=== PATIENT | female | born 1940 | race Caucasian/White ===

== ENCOUNTER 2016-07-21 09:49 | Inpatient (IN) | payer MEDICARE, BC ==
[~2016-07-21] VITALS: Ht 160 cm; Wt 68.0 kg
[~2016-07-21 09:49] MED LIST: ADLT ASA LOW81 MG PO; ALEVE220 M1 PO; AMBIEN10 MG PO; AMLODIPINE5 MG PO; ASACOL400 MG PO; ASPIR-8181 MG OR; C 250 PO; CALTRATE 600 PO; CALTRATE 602 PO; CENTRUM PO; CENTRUM SILVER PO; CINNAMON500 MG PO; CLONAZEPAM1 MG PO; CO Q-10400 MG PO; COREG CR80 MG PO; DIGITEK0.25 MG OR; DYAZIDE1 CAP PO; ELAVIL25 MG PO; GABAPENTIN100 MG PO; GABAPENTIN400 M2 PO; LATANOPROST0.005 % OU; LIDODERM5 % EX; LOMOTIL2.5 MG PO; LOSARTAN POT100 MG PO; LUTEIN20 MG PO; LYRICA300 MG OR; MAXZIDE-2537.5 MG/TA PO; METAXALONE PO; METAXALONE800 M1 PO; MICARDIS40 MG PO; NABUMETONE500 MG OR; NORCO1 TA1 PO; OMACOR1 GM OR; POTASSIUM GLUC595 MG PO; PRILOSEC40 MG PO; SIMVASTATIN40 MG PO; SKELAXIN800 MG PO; SYSTANE BAL OP; TALWIN NX OR; TRICOR145 MG OR; ULTRAM50 MG PO; VITAMIN B-12500 MC1 SL; VITAMIN D32000 UNIT PO; ZETIA10 MG PO; ZOCOR20 M1 PO; ZOCOR20 MG OR; [UNRECOGNIZED DRUG - OTHER] PO
[2016-07-21] MEDS ORDERED: GABAPENTIN300 M2 PO (14:01)
[2016-07-21] MEDS ORDERED: COZAAR100 MG PO (14:12)
[2016-07-21] MEDS ORDERED: COREG25 MG PO (14:13)
[2016-07-21] MEDS ORDERED: VITAMIN D31000 UNI1 PO (14:14)
[2016-07-21] MEDS ORDERED: CALTRATE 600+D1 CHW PO (14:15)
[2016-07-21] MEDS ORDERED: [UNRECOGNIZED DRUG - OTHER] PO (14:23)
[2016-07-21] MEDS ORDERED: MACU HEALTH PO (14:24)
[2016-07-24] VITALS (7 sets, daily range): BP systolic 112–156; BP diastolic 58–87
--- NOTE | 2016-07-24 15:15 | NUR ---
PT ARRIVED TO FLOOR AT THIS TIME VIA BED ACCOMPANIED BY TERRY RN; PT ORIENTED TO ROOM AND CALL LIGHT SYSTEM; PT C/O PAIN IN RIGHT KNEE RATING 8 OUT OF 10; PT MEDICATED WITH PERCOCET 1 TAB PER PRN ORDERS; ASSESSMENT COMPLETED AT THIS TIME; #[address] WITH LR @100ML/HR INFUSING; DRESSING TO RIGHT HIP CDI; WEDGE IN PLACE; SCD'S APPLIED; AND ICE PACK TO RIGHT HIP PER MD ORDERS; PT EDUCATED ON PAIN SCALE, PAIN MEDICATIONS, AND POC; PT DENIES ANY NEEDS AT THIS TIME; CALL LIGHT WITHIN REACH; WILL CONTINUE TO MONITOR
--- NOTE | 2016-07-24 19:30 | NUR ---
PT AWAKE RESTING IN BED. VSS. PT IS ALERT AND ORIENTED X3. RESP EVEN AND UNLABORED. O2 SAT 97% ON R/A. LUNGS CLEAR BILAT. ABD SOFT AND NONDISTENDED WITH BOWEL SOUNDS PRESENT. NO LOWER EXT EDEMA NOTED. LEFT HIP DRESSING IS CLEAN, DRY AND INTACT WITH NO DRAINAGE NOTED. STRONG PEDAL AND POPLITEAL PULSES PALPATED BILAT. IV SITE PATENT RT HAND NO REDNESS OR SWELLING AT SITE. IVF LR AT 100CC/HR. PT INSTRUCTED ON INSENTIVE SPIRMETRY AT BEDSIDE TO USE 10X/HR WHILE AWAKE. OFFER NO COMPLAINTS AT THIS TIME. FREQUENT ROUNDS MADE. CALL CHRISTINE WITHIN REACH.
--- NOTE | 2016-07-24 21:01 | NUR ---
PT MEDICATED WITH DILAUDID 1MG IV FOR LEFT HIP DISCOMFORT. IV SITE PATENT. CALL CHRISTINE WITHIN REACH.
--- NOTE | 2016-07-24 23:36 | NUR ---
PT ASSISTED BACK TO BED AFTER USING BSC. VOIDING CLEAR YELLOW URINE WITHOUT ANY DIFFICULTY. VSS. RESP EVEN AND UNLABORED. GAIT IS STEADY. MEDICATED WITH DILAUDID 1MG IV FOR LEFT HIP DISCOMFORT. IV SITE PATENT. FREQUENT ROUNDS MADE. CALL CHRISTINE WITHIN REACH.
--- NOTE | 2016-07-25 01:00 | NUR ---
PT AWAKE RESTING IN BED. RESP EVEN AND UNLABORED. NO DISTRESS NOTED. PT OFFERS NO COMPLAINTS AT THIS TIME. LEFT HIP DSG CLEAN AND DRY. IV SITE PATENT. WILL CONTINUE TO CLOSELY MONITOR. FREQUENT ROUNDS MADE. CALL CHRISTINE WITHIN REACH.
--- NOTE | 2016-07-25 04:00 | NUR ---
PT RESTING IN BED. RESP EVEN AND UNLABORED. IV SITE PATENT NO REDNESS OR SWELLING AT SITE. IVF LR DECREASED TO KVO DUE TO TAKING IN FLUIDS WITHOUT ANY DIFFICULTY AND FREQUENTLY VOIDING. LEFT HIP DSG REMAINS CLEAN AND DRY. STRONG PEDAL PULSES PALPATED BILAT. PT OFFERS NO COMPLAINTS AT THIS TIME. FREQUENT ROUNDS MADE. CALL CHRISTINE WITHIN REACH.
[2016-07-25 05:22] VITALS: BP 104/63
[2016-07-25 05:55] LABS: HEMATOCRIT 29.7 % (37.0-47.0); HEMOGLOBIN 9.9 g/dl (12.0-16.0); IMMATURE GRANULOCYTES 0.6 % (0.0-1.0); MEAN CELL VOLUME 98.3 fL CALC (80.0-100.0); MEAN CORPUSCULAR HGB 32.8 pG CALC (26.0-32.0); MEAN CORPUSCULAR HGB CONC 33.3 g/L CALC (32.0-36.0); NEUT# 5.11 thou/uL (2.00-7.15); RED BLOOD COUNT 3.02 mill/uL (4.20-5.60); RED CELL DISTRI WIDTH 12.8 % (11.5-15.5)
[2016-07-25 06:11] LABS: ANION GAP 11 (6-22 (CALC)); BUN 17 mg/dL (8-23); BUN/CREATININE RATIO 26 (12-20 (CALC)); CALCIUM 8.9 mg/dL (8.4-10.2); CARBON DIOXIDE 28 mmol/l (22-30); CHLORIDE 100 mmol/l (95-108); CREATININE 0.7 mg/dL (0.5-1.0); GFR > 60 ML/MIN (>=60 (CALC)); GFR FOR AFR.AMER. > 60 ML/MIN (>=60 (CALC)); GLUCOSE 110 mg/dL (82-115); POTASSIUM 3.3 mmol/l (3.5-5.1); SODIUM 135 mmol/l (137-146)
[2016-07-25 08:25] VITALS: BP 117/71
--- NOTE | 2016-07-25 09:30 | NUR ---
RECEIVED PT LAYING IN BED, ASSITED WITH REPOSITIONING AND PT DENIES PAIN AT THIS TIME. WILL CONTINUE TO MONITOR. CALL CHRISTINE WITHIN REACH.
--- NOTE | 2016-07-25 13:02 | NUR ---
AM: PATIENT SEEN BEDSIDE FOR GAIT AND F.A. REVIEWED TOTAL HIP PRECAUTIONS WITH THE PATIENT. SHE HAD MINIMAL RECALL FROM YESTERDAY. WILL REVIEW AGAIN. TRANSFER TRAINING DONE SUPINE TO SIT. PATIENT WANTED TO CROSS LEGS AND HELP THE RIGHT WITH THE LEFT-HIP PRECAUTIONS AGAIN REVIEWED. NEEDS CUING AND MIN ASSIST WITH SIT TO AND FROM STAND. AMBULATED 12 FEET WITH ROLLING WALKER. STATES SHE LIVES ALONE BUT WILL HAVE HER DAUGHTER AND GRANDDAUGHTER WITH HER FOR A WHILE. DOES NOT WANT TO GO TO REHAB. ONLY ONE STEP AT HOME. HAS HER OWN WALKER AT HOME. HAS A POOR GAIT PATTERN AND NEEDS CONTINUAL CUING TO CORRECT PATTERN ESPECIALLY THE INTERNAL ROTATION OF THE RIGHT HIP ON HEEL STRIKE. ENDURANCE LIMITED BY THE PAIN IN THE HIP. SHE APPEARED TO TOLERATE THE TREATMENT WELL AND WAS LEFT COMFORTABLE IN THE CHAIR WITH A PILLOW BETWEEN HER KNEES AND THE CALL LIGHT IN HER LAP. SHE IS CAUTIONED RE GETTING UP ALONE.
--- NOTE | 2016-07-25 13:47 | NUR ---
PT WAS OOB FOR A WALK WITH PHYSICAL THERAPY AND THEN TO THE RECLINER. WILL CONTINUE TO MONITOR. CALL CHRISTINE WITHIN REACH.
--- NOTE | 2016-07-25 15:59 | NUR ---
PM; PATIENT SEEN FOR EX AND FA. SHE IS ALERT AND COOP AND C/O OF BEING TIRED AND UNABLE TO WALK. WILLING TO DO EX AND TRANSFERS THOUGH. INSTRUCTED PATIENT IN TOTAL HIP PRECAUTIONS AND SHE DID WELL EXPLAINING THEM TO THE THERAPIST WITH 90% UNDERSTANDING. SHE DEMONSTRATED PROPER SIT TO AND FROM STAND AND SIT TO AND FROM SUPINE TRANSFERS WITH MINIMAL VERBAL CUING. SHE WAS ABLE TO TRANSFER SIT TO SUPINE WITH VERBAL CUING ONLY. GENTLE ACTIVE AND AA EX DONE IN SITTING AND IN SUPINE. PATIENT LEFT COMFORTABLE IN THE BED WITH THE CALL LIGHT IN REACH. SHE APPEARED TO TOLERATE TREATMENT WELL.
[2016-07-25 16:00] VITALS: BP 90/52
--- NOTE | 2016-07-25 16:45 | NUR ---
RECEIVED SHIFT REPORT FROM JUVENCIO BURT. PATIENT IS IN STABLE CONDITION AND APPEARS NOT TO BE IN ANY DISCOMFORT. REINFORCED THE IMPORTANCE OF NOT CROSSING HER LEGS. PT VERBALIZES UNDERSTANDING.
[2016-07-25 21:04] VITALS: BP 136/67
[2016-07-26 00:30] VITALS: BP 85/54
--- NOTE | 2016-07-26 00:30 | NUR ---
PATIENT BP AT THIS TIME IS 85/64, HR 64. PATIENT IS ASYMPTOMATIC AND APPEARS TO BE IN NO APPARENT ACUTE DISTRESS. WILL CONTINUE TO MONITOR
[2016-07-26 04:00] VITALS: BP 101/58
--- NOTE | 2016-07-26 04:00 | NUR ---
PATIENT RESTING QUIETLY. NO ACUTE DISTRESS NOTED
[2016-07-26 05:38] LABS: HEMATOCRIT 27.9 % (37.0-47.0); HEMOGLOBIN 9.4 g/dl (12.0-16.0); IMMATURE GRANULOCYTES 0.3 % (0.0-1.0); MEAN CELL VOLUME 98.2 fL CALC (80.0-100.0); MEAN CORPUSCULAR HGB 33.1 pG CALC (26.0-32.0); MEAN CORPUSCULAR HGB CONC 33.7 g/L CALC (32.0-36.0); NEUT# 4.32 thou/uL (2.00-7.15); RED BLOOD COUNT 2.84 mill/uL (4.20-5.60); RED CELL DISTRI WIDTH 12.8 % (11.5-15.5)
[2016-07-26 05:53] LABS: ANION GAP 12 (6-22 (CALC)); BUN 15 mg/dL (8-23); BUN/CREATININE RATIO 19 (12-20 (CALC)); CARBON DIOXIDE 29 mmol/l (22-30); CHLORIDE 98 mmol/l (95-108); CREATININE 0.8 mg/dL (0.5-1.0); GFR > 60 ML/MIN (>=60 (CALC)); GFR FOR AFR.AMER. > 60 ML/MIN (>=60 (CALC)); GLUCOSE 110 mg/dL (82-115); POTASSIUM 3.3 mmol/l (3.5-5.1); SODIUM 135 mmol/l (137-146)
--- NOTE | 2016-07-26 07:11 | NUR ---
BEDSIDE REPORT RECEIVED FROM JUVENCIO ZIMMER. PT SITTING UPRIGHT IN BED. DENIES PAIN. REPORTING OF CONCERNS ENCOURAGED. PLAN OF CARE DISCUSSED. FALL PRECAUTIONS REINFORCED. CALL LIGHT REVIEWED AND IN REACH. PT STATES UNDERSTANDING.
[2016-07-26 08:23] VITALS: BP 96/58
--- NOTE | 2016-07-26 10:46 | NUR ---
DR. COULTER IN TO SEE PT. PT UP IN CHAIR AT BEDSIDE. DENIES PAIN.
--- NOTE | 2016-07-26 13:21 | NUR ---
AM: THERAPY DONE FOR EX AND GAIT TRAINING. PATIENT NOW TRANSFERS WITH MIN ASSIST OF ONE. AMBULATED 30 FEET BEFORE C/O OF BEING TIRED. NEEDS VERBAL CUING FOR PATTERNING. REVIEWED TOTAL HIP PRECAUTIONS. SHE STILL IS CORRECT FOR 90%. ACTIVE EX DONE FOR RIGHT LE STRENGTHENING AND ROM KEEPING HIP PRECAUTIONS INTACT. SHE WAS LEFT COMFORTABLE IN THE CHAIR WITH HER CALL LIGHT AND VISITORS IN THE ROOM.
--- NOTE | 2016-07-26 14:41 | NUR ---
RIGHT HIP DRESSING CHANGED BY STUDENT NURSE JAVED WITH SUPERVISION OF CLINICAL REVIEW SPECIALIST. INCISION CLOSED WITH SURGICAL GLUE, NO DRAINAGE, NO S/S INFECTION. PUNCTURE WOUND CLOSED WITH SUTURES, NO DRAINAGE OR S/S INFEECTION. GAUZE AND MEDIPORE TAPE. TIME, DATED AND INITIALED.
--- NOTE | 2016-07-26 15:46 | NUR ---
PT RESTING WITH EYES CLOSED; NO S/SX OF DISTRESS NOTED; CALL CHRISTINE WITHIN REACH; WILL CONTINUE TO MONITOR
--- NOTE | 2016-07-26 16:18 | NUR ---
PHYSICAL THERAPY IN WITH PT; PT AMBULATORY WITH USE OF WALKER AND STAND BY ASSIST; WILL CONTINUE TO MONITOR.
--- NOTE | 2016-07-26 16:46 | NUR ---
PM: REVIEWED HIP PRECAUTIONS WITH THE PATIENT. ALSO REVIEWED WITH HER HOW TO NEGOTIATE THE ONE STEP IN AND OUT OF HER HOME. ASKED HER TO HAVE HER DAUGHTER WITH HER IN THE MORNING SO WE CAN REVIEW THE SAME WITH HER. GAIT TRAIINING DONE WITH A ROLLLING WALKER. ENDURANCE IMPROVED TO 75 FEET. TRANSFER TRAINING DONE IN AND OUT OF BED. SHE REQUIRES MOD ASSIST AND CUING TO MAINTAIN HIP PRECAUTIONS. SHE APPEARED TO TOLERATE TREATMENT WELL AND WAS LEFT COMFORTABLE IN THE BED WITH THE ABD WEDGE IN PLACE. SHE WAS SEEN FOR GT AND FA.
[2016-07-26 16:49] VITALS: BP 126/72
[2016-07-26 18:50] VITALS: BP 136/72
--- NOTE | 2016-07-26 18:50 | NUR ---
RECEIVED SHIFT REPORT FROM JUVENCIO STRANGE. PATIENT IS IN STABLE CONDITION AND APPEARS NOT TO BE IN ANY ACUTE DISTRESS OR DISCOMFORT. WILL CONTINUE TO MONITOR.
--- NOTE | 2016-07-27 | NUR ---
PATIENT LAYING IN BED WITH EYES CLOSED AND APPEARS TO BE SLEEPING. NO ACUTE CHANGES NOTED IN PT'S CONDITION. WILL CONTINUE TO MONITOR.
[2016-07-27 04:04] VITALS: BP 110/62
[2016-07-27 06:11] LABS: HEMATOCRIT 27.6 % (37.0-47.0); HEMOGLOBIN 9.2 g/dl (12.0-16.0); IMMATURE GRANULOCYTES 0.3 % (0.0-1.0); MEAN CELL VOLUME 98.2 fL CALC (80.0-100.0); MEAN CORPUSCULAR HGB 32.7 pG CALC (26.0-32.0); MEAN CORPUSCULAR HGB CONC 33.3 g/L CALC (32.0-36.0); NEUT# 4.39 thou/uL (2.00-7.15); RED BLOOD COUNT 2.81 mill/uL (4.20-5.60); RED CELL DISTRI WIDTH 12.8 % (11.5-15.5)
[2016-07-27 06:33] LABS: ANION GAP 10 (6-22 (CALC)); BUN 18 mg/dL (8-23); BUN/CREATININE RATIO 26 (12-20 (CALC)); CARBON DIOXIDE 33 mmol/l (22-30); CHLORIDE 98 mmol/l (95-108); CREATININE 0.7 mg/dL (0.5-1.0); GFR > 60 ML/MIN (>=60 (CALC)); GFR FOR AFR.AMER. > 60 ML/MIN (>=60 (CALC)); GLUCOSE 105 mg/dL (82-115); SODIUM 136 mmol/l (137-146)
[2016-07-27 08:10] VITALS: BP 110/54
--- NOTE | 2016-07-27 08:10 | NUR ---
ASSESSMENT IS COMPLETED: IV SITE IS FREE FROM REDNESS OR EDEMA. DRESSING IS CDI. CONTINUE TO OBSERVE AND MONITOR.
[2016-07-27 09:25] VITALS: BP 110/54
[2016-07-27] MEDS ORDERED: PERCOCET 10/31 COMBO PO (09:49)
[2016-07-27] MEDS ORDERED: ASPIRIN EC325 MG PO (09:49)
[2016-07-27] MEDS ORDERED: PROTONIX40 M2 PO (09:51)
--- NOTE | 2016-07-27 11:37 | NUR ---
DISCHARGE INSTRUCTIONS GIVEN AND VERBALIZED UNDERSTANDING. IV SITE DISCONTINUED CATHETER INTACT. NO REDNESS OR EDEMA. CONTINUE TO OSBERVE AND MONITOR
--- NOTE | 2016-07-27 12:12 | NUR ---
AM: ASKED PATIENT TO HAVE HER DAUGHTER COME IN EARLY FOR INSTRUCTION IN HIP PRECAUTIONS THE PATIENT STILL HAS DIFFICULTY WITH RECALL OF THE INSTRUCTIONS. WRITTEN INSTRUCTIONS GIVEN TO THE PATIENT AND HER DAUGHTER FOR SAFETY IN THE HOME AND TOTAL HIP ARTHROPLASTY PRECAUTIONS. THE THERAPIST INSTRUCTED THE PATIENT AND HER DAUGHTER IN ABOVE. THEY APPEARED TO UNDERSTAND THE INSTRUCTIONS. PATIENT TO RECEIVE HOME HEALTH FOR THERAPY.
== END 2016-07-27 11:37 | DRG 470 ==
LOC: ENPENDDIS → MS2 07-24 07:59
PROVIDERS: ADMIT Orthopaedic Surgery; ATTEND Internal Medicine
PROC: 0SR904A Replacement of Right Hip Joint with Ceramic on Polyethylene Synthetic Substitute, Uncemented, Open Approach (ICD-10-PCS; principal; 2016-07-24)
DX: M16.11 Unilateral primary osteoarthritis, right hip (principal); I11.0 Hypertensive heart disease with heart failure; I50.9 Heart failure, unspecified; I25.10 Atherosclerotic heart disease of native coronary artery without angina pectoris; E78.5 Hyperlipidemia, unspecified; Z95.810 Presence of automatic (implantable) cardiac defibrillator; Z95.5 Presence of coronary angioplasty implant and graft
CPT/HCPCS: J2270; J2710

== ENCOUNTER 2016-08-29 17:55 | Emergency (ER) | payer MEDICARE, BC ==
[~2016-08-29] VITALS: Ht 160 cm; Wt 68.0 kg
[~2016-08-29 17:55] MED LIST changes: +ASPIRIN EC325 MG PO; +CALTRATE 600+D1 CHW PO; +COREG25 MG PO; +COZAAR100 MG PO; +GABAPENTIN300 M2 PO; +MACU HEALTH PO; +PERCOCET 10/31 COMBO PO; +PROTONIX40 M2 PO; +VITAMIN D31000 UNI1 PO; +[UNRECOGNIZED DRUG - OTHER] PO
[2016-08-29 18:22] LABS: HEMATOCRIT 34.5 % (37.0-47.0); HEMOGLOBIN 11.6 g/dl (12.0-16.0); IMMATURE GRANULOCYTES 0.5 % (0.0-1.0); MEAN CELL VOLUME 96.4 fL CALC (80.0-100.0); MEAN CORPUSCULAR HGB 32.4 pG CALC (26.0-32.0); MEAN CORPUSCULAR HGB CONC 33.6 g/L CALC (32.0-36.0); NEUT# 6.86 thou/uL (2.00-7.15); RED BLOOD COUNT 3.58 mill/uL (4.20-5.60)
[2016-08-29 18:31] LABS: ALBUMIN 4.6 g/dL (3.2-5.0); ALKALINE PHOSPHATASE 98 u/l (38-126); ANION GAP 16 (6-22 (CALC)); BILIRUBIN, TOTAL 0.6 mg/dL (0.0-1.4); BUN 25 mg/dL (8-23); BUN/CREATININE RATIO 29 (12-20 (CALC)); CALCIUM 10.1 mg/dL (8.4-10.2); CARBON DIOXIDE 25 mmol/l (22-30); CHLORIDE 106 mmol/l (95-108); CREATININE 0.9 mg/dL (0.5-1.0); GFR > 60 ML/MIN (>=60 (CALC)); GFR FOR AFR.AMER. > 60 ML/MIN (>=60 (CALC)); GLUCOSE 127 mg/dL (82-115); POTASSIUM 4.2 mmol/l (3.5-5.1); SGOT/AST 37 u/l (9-36); SGPT/ALT 34 u/l (11-66); SODIUM 143 mmol/l (137-146)
[2016-08-29 18:34] LABS: PROTHROMBIN TIME 11.2 SECONDS (9.0-12.5)
[2016-08-29] MEDS ORDERED: FERRAPLUS 90 PO (20:59)
[2016-08-29] MEDS ORDERED: FOLIC ACID1 MG PO (20:59)
[2016-08-29 21:24] VITALS: BP 132/74
== END 2016-08-29 21:26 ==
LOC: ED 17:55
PROVIDERS: Emergency Medicine
DX: S73.004A Unspecified dislocation of right hip, initial encounter (principal); I10 Essential (primary) hypertension; I25.10 Atherosclerotic heart disease of native coronary artery without angina pectoris; E78.00 Pure hypercholesterolemia, unspecified; G25.81 Restless legs syndrome; W18.30XA Fall on same level, unspecified, initial encounter; Y93.H2 Activity, gardening and landscaping; Y92.007 Garden or yard of unspecified non-institutional (private) residence as the place of occurrence of the external cause; Z96.641 Presence of right artificial hip joint; Z95.5 Presence of coronary angioplasty implant and graft

== ENCOUNTER 2016-11-28 11:55 | Emergency (ER) | payer MEDICARE, BC ==
[~2016-11-28] VITALS: Ht 160 cm; Wt 66.0 kg
[~2016-11-28 11:55] MED LIST changes: +FERRAPLUS 90 PO; +FOLIC ACID1 MG PO
[2016-11-28 12:45] LABS: URINE BILIRUBIN - DIPSTICK NEGATIVE (NEGATIVE); URINE BLOOD DIPSTICK NEGATIVE (NEGATIVE); URINE COLOR YELLOW; URINE GLUCOSE - DIPSTICK NEGATIVE (NEGATIVE); URINE KETONE TRACE mg/dL (NEGATIVE); URINE PROTEIN - DIPSTICK NEGATIVE (NEG-TRACE); URINE SPECIFIC GRAVITY 1.015; URINE UROBILINOGEN - DIPSTICK 0.2 E.U./dL (0.2)
[2016-11-28 12:50] LABS: URINE CLARITY CLOUDY; URINE LEUK ESTERASE SMALL (NEGATIVE); URINE NITRITE - DIPSTICK POSITIVE (Negative)
[2016-11-28 13:30] LABS: URINE BACTERIA MANY hpf; URINE SQUAMOUS EPITHELIAL CELL FEW EPI/hpf (0-FEW)
[2016-11-28 13:46] LABS: HEMATOCRIT 33.7 % (37.0-47.0); HEMOGLOBIN 11.4 g/dl (12.0-16.0); IMMATURE GRANULOCYTES 0.4 % (0.0-1.0); MEAN CELL VOLUME 97.7 fL CALC (80.0-100.0); MEAN CORPUSCULAR HGB CONC 33.8 g/L CALC (32.0-36.0); NEUT# 3.7 thou/uL (2.00-7.15); RED BLOOD COUNT 3.45 mill/uL (4.20-5.60); RED CELL DISTRI WIDTH 12.9 % (11.5-15.5)
[2016-11-28 13:54] LABS: ALBUMIN 4.5 g/dL (3.2-5.0); ALKALINE PHOSPHATASE 76 u/l (38-126); ANION GAP 17 (6-22 (CALC)); BILIRUBIN, TOTAL 0.6 mg/dL (0.0-1.4); BUN 33 mg/dL (8-23); BUN/CREATININE RATIO 36 (12-20 (CALC)); CALCIUM 10.2 mg/dL (8.4-10.2); CARBON DIOXIDE 27 mmol/l (22-30); CHLORIDE 102 mmol/l (95-108); CREATININE 0.9 mg/dL (0.5-1.0); GFR > 60 ML/MIN (>=60 (CALC)); GFR FOR AFR.AMER. > 60 ML/MIN (>=60 (CALC)); GLUCOSE 158 mg/dL (82-115); POTASSIUM 3.7 mmol/l (3.5-5.1); SGOT/AST 27 u/l (9-36); SGPT/ALT 28 u/l (11-66); SODIUM 143 mmol/l (137-146); TOTAL PROTEIN 6.7 g/dL (6.3-8.2)
[2016-11-28 14:00] LABS: PROTHROMBIN TIME 11.4 SECONDS (9.0-12.5)
[2016-11-28 14:05] LABS: MYOGLOBIN 80 ng/mL (0 - 62)
[2016-11-28 18:30] VITALS: BP 139/58
== END 2016-11-28 19:10 | disposition home or self-care (01) ==
LOC: ED 11:55
PROVIDERS: Emergency Medicine
PROC: 0SW9XJZ Revision of Synthetic Substitute in Right Hip Joint, External Approach (ICD-10-PCS; principal; 2016-11-28)
DX: T84.020A Dislocation of internal right hip prosthesis, initial encounter (principal); I10 Essential (primary) hypertension; I25.2 Old myocardial infarction; G25.81 Restless legs syndrome; H40.9 Unspecified glaucoma; E78.00 Pure hypercholesterolemia, unspecified; Y83.1 Surgical operation with implant of artificial internal device as the cause of abnormal reaction of the patient, or of later complication, without mention of misadventure at the time of the procedure; Y92.007 Garden or yard of unspecified non-institutional (private) residence as the place of occurrence of the external cause; R82.71 Bacteriuria

== ENCOUNTER 2016-12-22 14:35 | Inpatient (IN) | payer MEDICARE, BC ==
[~2016-12-22] VITALS: Ht 160 cm; Wt 65.8 kg
[~2016-12-22 14:35] MED LIST changes: +AMITRIPTYLIN50 MG PO; -C 250 PO; +MACULAR HEALTH1 CAP IO; +SYSTANE BALANCE REST IO; +VITAMIN C TR PO
[2016-12-25 13:30] VITALS: BP 109/56
[2016-12-25 13:45] VITALS: BP 106/61
[2016-12-25 14:00] VITALS: BP 121/61
[2016-12-25 16:00] VITALS: BP 121/61
[2016-12-25 19:15] VITALS: BP 107/62
[2016-12-26 00:22] VITALS: BP 104/61
[2016-12-26 04:15] VITALS: BP 128/63
[2016-12-26 06:33] LABS: HEMATOCRIT 29.3 % (37.0-47.0); HEMOGLOBIN 9.9 g/dl (12.0-16.0); MEAN CELL VOLUME 96.1 fL CALC (80.0-100.0); MEAN CORPUSCULAR HGB 32.5 pG CALC (26.0-32.0); MEAN CORPUSCULAR HGB CONC 33.8 g/L CALC (32.0-36.0); RED BLOOD COUNT 3.05 mill/uL (4.20-5.60); RED CELL DISTRI WIDTH 12.2 % (11.5-15.5)
[2016-12-26 06:47] LABS: ANION GAP 12 (6-22 (CALC)); BUN 21 mg/dL (8-23); BUN/CREATININE RATIO 26 (12-20 (CALC)); CALCIUM 9.6 mg/dL (8.4-10.2); CARBON DIOXIDE 27 mmol/l (22-30); CHLORIDE 104 mmol/l (95-108); CREATININE 0.8 mg/dL (0.5-1.0); GFR > 60 ML/MIN (>=60 (CALC)); GFR FOR AFR.AMER. > 60 ML/MIN (>=60 (CALC)); GLUCOSE 106 mg/dL (82-115); POTASSIUM 3.6 mmol/l (3.5-5.1); SODIUM 140 mmol/l (137-146)
[2016-12-26 09:00] VITALS: BP 150/74
[2016-12-26 09:25] VITALS: BP 150/74
[2016-12-26] MEDS ORDERED: PERCOCET 10/31 COMBO PO (10:18)
== END 2016-12-26 12:10 | disposition home or self-care (01) | DRG 468 ==
LOC: MS2 12-25 07:30
PROVIDERS: Internal Medicine; ADMIT Internal Medicine; ATTEND Orthopaedic Surgery
PROC: 0SP909Z Removal of Liner from Right Hip Joint, Open Approach (ICD-10-PCS; principal; 2016-12-25)
PROC: 0SUA09Z Supplement Right Hip Joint, Acetabular Surface with Liner, Open Approach (ICD-10-PCS; 2016-12-25)
DX: T84.020A Dislocation of internal right hip prosthesis, initial encounter (principal); I11.0 Hypertensive heart disease with heart failure; I50.9 Heart failure, unspecified; D64.9 Anemia, unspecified; I25.10 Atherosclerotic heart disease of native coronary artery without angina pectoris; E78.5 Hyperlipidemia, unspecified; I25.2 Old myocardial infarction; Y83.1 Surgical operation with implant of artificial internal device as the cause of abnormal reaction of the patient, or of later complication, without mention of misadventure at the time of the procedure; Z96.653 Presence of artificial knee joint, bilateral; Z96.669 Presence of unspecified artificial ankle joint; Z79.82 Long term (current) use of aspirin; Z95.810 Presence of automatic (implantable) cardiac defibrillator; Z79.899 Other long term (current) drug therapy
CPT/HCPCS: J2270; J2710

== ENCOUNTER 2017-08-26 11:57 | Emergency (ER) | payer MEDICARE, BC ==
[~2017-08-26] VITALS: Ht 160 cm; Wt 70.0 kg
[2017-08-26 12:35] LABS: HEMATOCRIT 30.8 % (37.0-47.0); HEMOGLOBIN 10.3 g/dl (12.0-16.0); IMMATURE GRANULOCYTES 0.4 % (0.0-1.0); MEAN CELL VOLUME 93.1 fL CALC (80.0-100.0); MEAN CORPUSCULAR HGB 31.1 pG CALC (26.0-32.0); MEAN CORPUSCULAR HGB CONC 33.4 g/L CALC (32.0-36.0); NEUT# 2.95 thou/uL (2.00-7.15); RED BLOOD COUNT 3.31 mill/uL (4.20-5.60); RED CELL DISTRI WIDTH 13.4 % (11.5-15.5)
[2017-08-26 12:43] LABS: ANION GAP 10 (6-22 (CALC)); BUN 18 mg/dL (8-23); BUN/CREATININE RATIO 24 (12-20 (CALC)); CARBON DIOXIDE 28 mmol/l (22-30); CHLORIDE 105 mmol/l (95-108); CREATININE 0.8 mg/dL (0.5-1.0); GFR > 60 ML/MIN (>=60 (CALC)); GFR FOR AFR.AMER. > 60 ML/MIN (>=60 (CALC)); POTASSIUM 3.8 mmol/l (3.5-5.1); SODIUM 139 mmol/l (137-146)
[2017-08-26 16:08] VITALS: BP 122/62
== END 2017-08-26 16:00 ==
LOC: ED 11:57
PROVIDERS: Family Medicine
PROC: 0SS9XZZ Reposition Right Hip Joint, External Approach (ICD-10-PCS; principal; 2017-08-26)
DX: T84.020A Dislocation of internal right hip prosthesis, initial encounter (principal); X50.0XXA Overexertion from strenuous movement or load, initial encounter; Y93.H2 Activity, gardening and landscaping; Y92.007 Garden or yard of unspecified non-institutional (private) residence as the place of occurrence of the external cause

== ENCOUNTER 2017-10-16 22:52 | Emergency (ER) | payer MEDICARE, BC ==
[~2017-10-16] VITALS: Ht 160 cm; Wt 59.0 kg
[2017-10-16 23:30] LABS: HEMATOCRIT 33.2 % (37.0-47.0); IMMATURE GRANULOCYTES 0.6 % (0.0-5.0); MEAN CELL VOLUME 90.7 fL CALC (80.0-100.0); MEAN CORPUSCULAR HGB 30.1 pG CALC (26.0-32.0); MEAN CORPUSCULAR HGB CONC 33.1 g/L CALC (32.0-36.0); NEUT# 4.97 thou/uL (2.00-7.15); RED BLOOD COUNT 3.66 mill/uL (4.20-5.60); RED CELL DISTRI WIDTH 14.3 % (11.5-15.5)
[2017-10-16 23:40] LABS: ALBUMIN 4.1 g/dL (3.2-5.0); ALKALINE PHOSPHATASE 125 u/l (38-126); ANION GAP 13 (6-22 (CALC)); BILIRUBIN, TOTAL 0.6 mg/dL (0.0-1.4); BUN 26 mg/dL (8-23); BUN/CREATININE RATIO 36 (12-20 (CALC)); CARBON DIOXIDE 32 mmol/l (22-30); CHLORIDE 103 mmol/l (95-108); CREATININE 0.7 mg/dL (0.5-1.0); GFR > 60 ML/MIN (>=60 (CALC)); GFR FOR AFR.AMER. > 60 ML/MIN (>=60 (CALC)); POTASSIUM 3.1 mmol/l (3.5-5.1); SGOT/AST 30 u/l (9-36); SGPT/ALT 28 u/l (11-66); SODIUM 143 mmol/l (137-146); TOTAL PROTEIN 6.3 g/dL (6.3-8.2)
[2017-10-16 23:52] LABS: MYOGLOBIN 40 ng/mL (0 - 62)
[2017-10-17 01:00] VITALS: BP 167/77
== END 2017-10-17 01:01 | disposition short-term general hospital (02) ==
LOC: ED 22:52
PROVIDERS: Emergency Medicine
DX: I62.00 Nontraumatic subdural hemorrhage, unspecified (principal); E83.52 Hypercalcemia; E86.0 Dehydration; E87.6 Hypokalemia; R53.1 Weakness; R42 Dizziness and giddiness; I10 Essential (primary) hypertension; E78.5 Hyperlipidemia, unspecified; G25.81 Restless legs syndrome

== ENCOUNTER 2017-12-09 07:27 | Observation (INO) | payer MEDICARE, BC ==
[~2017-12-09] VITALS: Ht 157.5 cm; Wt 62.2 kg
[~2017-12-09 07:27] MED LIST changes: +BETIMOL0.5 % OU; +CARVEDILOL12.5 MG PO; +DITROPAN5 MG/TA1 PO; +DOXYCYCL HYC100 MG PO; +FLORASTOR250 M1 PO; +K-DUR/KLOR-CON20 MEQ PO; +LASIX 20 MG TAB20 MG PO; +MILK OF MAG30 ML/UDC PO; +NEURONTIN300 MG PO; +PREDNISONE10 MG PO; +VANTIN200 M1 PO
--- NOTE | 2017-12-09 07:28 | NUR ---
PT TO ROOM VIA EMS STRETCHER. PT HAS SHORTENING AND INWARD ROTATION TO THE RIGHT LEG. PT REPORTS THIS HAS HAPPENED NUMEROUS TIMES IN THE PAST.
[2017-12-09] MEDS ORDERED: BETIMOL0.5 % OU (07:58)
[2017-12-09] MEDS ORDERED: TYLENOL325 MG PO (07:59)
[2017-12-09 08:01] LABS: HEMATOCRIT 29.7 % (37.0-47.0); HEMOGLOBIN 10.2 g/dl (12.0-16.0); IMMATURE GRANULOCYTES 0.8 % (0.0-5.0); MEAN CORPUSCULAR HGB 31.6 pG CALC (26.0-32.0); MEAN CORPUSCULAR HGB CONC 34.3 g/L CALC (32.0-36.0); NEUT# 3.5 thou/uL (2.00-7.15); RED BLOOD COUNT 3.23 mill/uL (4.20-5.60)
--- NOTE | 2017-12-09 08:20 | NUR ---
DR BECERRA AT BEDSIDE TO ATTEMPT RIGHT HIP REDUCTION. NO SUCCESS. ALICE FREEDMAN AT BEDSIDE FOR SEDATION. PT VITAL SIGNS WITHIN NORMAL LIMITS. SEE CHARTING. RIGHT LOWER EXTREMITY SHORTENED WITH MEDIAL ROTATION. POSITIVE RIGHT PEDAL PULSES NOTED.
[2017-12-09 08:24] LABS: ANION GAP 8 (6-22 (CALC)); BUN 12 mg/dL (8-23); BUN/CREATININE RATIO 16 (12-20 (CALC)); CARBON DIOXIDE 36 mmol/l (22-30); CREATININE 0.8 mg/dL (0.5-1.0); GFR > 60 ML/MIN (>=60 (CALC)); GFR FOR AFR.AMER. > 60 ML/MIN (>=60 (CALC)); SODIUM 135 mmol/l (137-146)
[2017-12-09 08:27] LABS: CHLORIDE 94 mmol/l (95-108)
--- NOTE | 2017-12-09 08:45 | NUR ---
PT AWAKENS TO VERBAL STIMULI - STATES " PAIN IS 6 OUT OF 10 ON PAIN SCALE" DR BECERRA NOTIFIED.
--- NOTE | 2017-12-09 09:45 | NUR ---
PT SUPINE IN BED, AIRWAY PATENT, RESP EVEN AND NON LABORED, SKIN P/W/D.
--- NOTE | 2017-12-09 10:40 | NUR ---
PT C/O 08/15 PAIN TO THE RIGHT HIP, MD NOTIFIED. PT REPOSITIONED FOR COMFORT.
--- NOTE | 2017-12-09 11:30 | NUR ---
NO CHANGE IN PT STATUS.
--- NOTE | 2017-12-09 12:21 | NUR ---
ATTEMPTED TO CALL REPORT. NURSE WILL CALL BACK FOR REPORT. WAIT TIME EXPLAINED TO PT. SHE VERBALIZED UNDERSTANDING WITH NO QUESTIONS VOICED.
--- NOTE | 2017-12-09 12:42 | NUR ---
Admission Note Report Given to: SBAR PRINTED TO FLOOR Transported by: Wheelchair X Stretcher Transported with: X Nurse Transporter X Patent IV O2 X Manager [employer]
--- NOTE | 2017-12-09 12:44 | NUR ---
PT CAME FROM ER VIA STRETCHER BY MARY. TRANFER PT TO BED X3 PERSON ASSIST. PT TOLERATED WELL. SAFETY PRECAUTIONS REINFORCED AND CALL LIGHT IN REACH. SON IN ROOM.
--- NOTE | 2017-12-09 12:45 | NUR ---
REPORT CALLED TO JUAN CARLOS HENNING. PT TAKEN TO MED SURG VIA STRETCHER IN STABLE CONDITION.
[2017-12-09 13:00] VITALS: BP 131/67
--- NOTE | 2017-12-09 14:34 | NUR ---
ASSESSMENT DONE PT IS A&O X3 BUT HARD OF HEARING. TELE IN PLACE. RESPS EVEN AND UNLABORED. PT STATED PAIN IN RIGHT HIP 4/ BUT DENIES PAIN MEDICATION AT THIS TIME. 18 LAC THAT APPEARS HEALTHY. FAMILY IN ROOM . CALL LIGHT IN REACH.
[2017-12-09 15:11] VITALS: BP 115/58
--- NOTE | 2017-12-09 15:38 | NUR ---
ORDER RECEIVED PER DR. HORVATH FOR PT TO BE TRANFER TO [facility].
--- NOTE | 2017-12-09 15:57 | NUR ---
MEDICATED PT WITH PERCOCET FOR PAIN SEE EMAR. PT DENIES ANY OTHER NEEDS AT THIS TIME. FAMILY IN ROOM. CALL LIGHT IN REACH.
--- NOTE | 2017-12-09 18:35 | NUR ---
Discharge instructions given. Patient verbalizes understanding of same. Discharged in stable condition via Medical Transport to [facility] with staff. All belongings sent with pt. REPORT GIVEN TO HINA FROM [facility].
== END 2017-12-09 18:32 ==
LOC: ED 07:27 → ED-I 11:39 → ED 11:50 → MS2 11:51
PROVIDERS: Family Medicine; ADMIT Internal Medicine; ATTEND Internal Medicine
PROC: 0SS9XZZ Reposition Right Hip Joint, External Approach (ICD-10-PCS; principal; 2017-12-09)
DX: T84.020A Dislocation of internal right hip prosthesis, initial encounter (principal); E83.52 Hypercalcemia; E87.6 Hypokalemia; I12.9 Hypertensive chronic kidney disease with stage 1 through stage 4 chronic kidney disease, or unspecified chronic kidney disease; N18.9 Chronic kidney disease, unspecified; I25.10 Atherosclerotic heart disease of native coronary artery without angina pectoris; E78.5 Hyperlipidemia, unspecified; R91.1 Solitary pulmonary nodule; G25.81 Restless legs syndrome; I25.2 Old myocardial infarction; H40.9 Unspecified glaucoma; Y83.1 Surgical operation with implant of artificial internal device as the cause of abnormal reaction of the patient, or of later complication, without mention of misadventure at the time of the procedure; Y92.122 Bedroom in nursing home as the place of occurrence of the external cause; Z95.5 Presence of coronary angioplasty implant and graft; Z86.79 Personal history of other diseases of the circulatory system; Z95.810 Presence of automatic (implantable) cardiac defibrillator
CPT/HCPCS: G0378